=== PATIENT | male | born 1995 | race Caucasian/White ===

== ENCOUNTER 2016-12-05 15:14 | Emergency (ER) | payer OTHER ==
[2016-12-05 15:22] VITALS: TEMP 98.5; O2SAT 98
--- NOTE | 2016-12-05 15:59 | C.PDOC ---
History Of Present Illness 21 yo male come inf or evaluation of left ankle pain developed since early today after sustained twisting injury. Pt admits, pa in is localized and worse with weight bearing. Pt admits, was able to ambulate with discomfort. Otherwise , pt denies head injury, LOC, syncope, neck pain, denies obvious deformity to left ankle/foot, denies weakness, sensory or vascular deficits to Left ankle/ foot. Ambulate to ED for evaluation, not in any apparent distress. Time Seen by Provider: 12/05/16 15:24 Chief Complaint (Nursing): Lower Extremity Problem/Injury History Per: Patient Past Medical History Reviewed: Historical Data, Nursing Documentation, Vital Signs Vital Signs: Last Vital Signs Temp 98.5 F 12/05/16 15:19 Pulse 119 H 12/05/16 15:19 Resp 20 12/05/16 15:19 BP 142/99 H 12/05/16 15:19 Pulse Ox 98 12/05/16 16:05 - Medical History PMH: No Chronic Diseases Family History: States: Unknown Family Hx - Social History Hx Tobacco Use: No Hx Alcohol Use: No Hx Substance Use: No - Immunization History Hx Tetanus Toxoid Vaccination: Yes Hx Influenza Vaccination: No Hx Pneumococcal Vaccination: No Review Of Systems Except As Marked, All Systems Reviewed And Found Negative. Musculoskeletal: Positive for: Foot Pain Skin: Negative for: Rash, Lesions, Bruising Neurological: Negative for: Weakness, Numbness, Altered Mental Status Physical Exam - Physical Exam Appears: Well, Non-toxic, No Acute Distress Skin: Normal Color, Warm, No Rash Head: Atraumatic, Normacephalic Neck: No Midline Cervical Tenderness, No Paracervical Tenderness, No Step Off Deformity, Supple Extremity: Normal ROM (FAROM, no neurovascular deficits.), Tenderness (mild tenderness over lateral malleolus of Left ankle), No Calf Tenderness (B/L), No Deformity, No Swelling Neurological/Psych: Oriented x3, Normal Speech, Normal Motor, Normal Sensation, Normal Reflexes ED Course And Treatment O2 Sat by Pulse Oximetry: 98 - Other Rad Left ankle X-Ray: Interpreted by Me, Viewed By Me Interpretation: (-) acute fx or dislocation Left foot X-Ray: Interpreted by Me, Viewed By Me Interpretation: (-) acute fx or dislocation Progress Note: On re-evaluation, pt is afebrile, hemodynamicaly stable. Ambulatory in Ed with stable agit. Lef lidiale: exam c/w ankle sprain. FAROM, no neurovascular deficits. xray (-) acute fx or dislocation. Air cast applied to left ankle. Pt advised and ref. to f/u with Ortho in 2-3 days for re-eval. return if any new changes. Disposition Counseled Patient/Family Regarding: Studies Performed, Diagnosis, Need For Followup, Rx Given - Disposition Referrals: [facility] [Outside] [facility] [place] [Outside] Disposition: HOME/ ROUTINE Disposition Time: 16:04 Condition: STABLE Additional Instructions: RICE-rest, ice, compression,elevation tylenol as need for pain Splint for 1 week Follow up with orthopedist in 2-3 days for re-evaluation. Return to ED if any worsening or new changes. Instructions: Ankle Sprain (ED), Ankle Stirrup Splint (ED) Forms: [facility] ([place]otho) - Clinical Impression Clinical Impression: Ankle sprain
[2016-12-05 16:26] VITALS: BP 136/79; PULSE 92; RESP 18
--- NOTE | 2016-12-05 16:55 | RAD ---
PROCEDURE: Left Ankle Radiographs. HISTORY: post injury ,pain FT5 COMPARISON: Coalition made with concurrent radiographs of the left foot FINDINGS: BONES: No evidence of acute displaced fracture nor dislocation. Osseous structures appear intact. Small elliptical shaped lucency within the metaphysis distal fibula could represent simple bone cyst. There appears to be a small accessory ossicle adjacent to the talus and navicular (os supranaviculare) JOINTS: Normal. No osteoarthritis. Ankle mortise maintained. Talar dome intact SOFT TISSUES: Mild soft tissue swelling overlying the lateral malleolus OTHER FINDINGS: None. IMPRESSION: No evidence of acute displaced fracture nor dislocation. Mild lateral soft tissue swelling. If symptoms persist or occult fracture suspected clinically recommend repeat radiographs in 5-10 days as most fractures should become radiographically evident in this timeframe.
--- NOTE | 2016-12-05 17:15 | RAD ---
PROCEDURE: Left Foot Radiographs. HISTORY: post injury COMPARISON: None. FINDINGS: BONES: No evidence of acute displaced fracture nor dislocation. Osseous structures appear intact. There appears to be a small accessory ossicle adjacent to the talus and navicular (os supranaviculare) SOFT TISSUES: Normal. OTHER FINDINGS: None. IMPRESSION: Normal left foot radiographNo evidence of acute displaced fracture or dislocation. If symptoms persist or occult fracture suspected clinically recommend repeat radiographs in 5-10 days as most fractures should become radiographically evident in this timeframe. S.
== END 2016-12-05 16:27 | disposition home or self-care (01) ==
LOC: C.ER 15:14
DX: S93.402A Sprain of unspecified ligament of left ankle, initial encounter (principal); X50.0XXA Overexertion from strenuous movement or load, initial encounter; Y93.89 Activity, other specified; Y92.89 Other specified places as the place of occurrence of the external cause